=== PATIENT | female | born 1935 | race Caucasian/White ===

== ENCOUNTER → 2016-11-26 | Outpatient (CLI) | payer MEDICARE ==
--- NOTE | 2016-11-27 07:12 | XR ---
EXAMINATION TYPE: XR abdomen 2V DATE OF EXAM: 11/26/2016 4:36 PM CLINICAL HISTORY: Lower abdominal pain and bloating after eating for 2 days. TECHNIQUE: Upright and left side down lateral decubitus views of the abdomen are obtained as requeste d. COMPARISON: None. FINDINGS: Scattered gas is seen in non-distended small bowel loops. Gas and fecal material is seen in non-distended colon. There is no visceromegaly, pneumoperitoneum, or abnormal calcification appr eciated. The lung bases are clear. Underlying levoconvex scoliosis centered in the upper lumbar spin e is present. Scattered pelvic phleboliths are seen. Some vascular calcification mid to lower abdomen is noted. There is axial joint space loss in both hips, left greater than right where it is moderate to advanced in appearance. IMPRESSION: Overall nonobstructive bowel gas pattern.
== END | disposition home or self-care (01) ==
LOC: RADXRMAIN 16:08
PROVIDERS: ATTEND Family Medicine
DX: R10.9 Unspecified abdominal pain (principal)
CPT/HCPCS: 74020

== ENCOUNTER → 2018-01-07 | Outpatient (CLI) | payer MEDICARE ==
--- NOTE | 2018-01-07 09:55 | CT ---
EXAMINATION TYPE: CT brain wo con DATE OF EXAM: 01/07/2018 COMPARISON: NONE INDICATION: mild memory loss per patient DLP: 1121 mGycm, Automated exposure control for dose reduction was used. CONTRAST: None CT of the brain is performed utilizing 3 mm thick sections through the posterior fossa and 3 mm thick sections through the remaining calvarium. Study is performed within 24 hours of arrival to the hosp [facility]. No abnormal hyperdensity is present to suggest an acute intracranial hemorrhage. No mass lesion is evident. No acute infarcts are evident. Ventricles and sulci are appropriate for the patient age. Paranasal sinuses and mastoid air cells within the [id number] are clear. IMPRESSIONS: 1. No acute intracranial process.
== END | disposition home or self-care (01) ==
LOC: RADCTMAIN 09:22
PROVIDERS: ATTEND Internal Medicine
DX: G31.84 Mild cognitive impairment of uncertain or unknown etiology (principal)
CPT/HCPCS: 70450

== ENCOUNTER → 2018-10-26 | Outpatient (CLI) | payer MEDICARE | END | disposition home or self-care (01) | LOC: LABPAT 15:13 | PROVIDERS: ATTEND Orthopaedic Surgery | DX: Z01.812 Encounter for preprocedural laboratory examination (principal) | CPT/HCPCS: 87070 ==

== ENCOUNTER 2018-11-11 05:40 | Inpatient (IN) | payer MEDICARE ==
--- NOTE | 2018-11-10 15:55 | HP ---
HISTORY AND PHYSICAL DATE OF SURGERY: 11/11/2018 Opal Wong is an 83-year-old patient seen with symptomatic left knee osteoarthritis. We discussed treatment options. She elected to proceed with left total knee arthroplasty. Consent was obtained. Medical clearance was provided by Dr. Kang. PAST MEDICAL HISTORY: Hypertension, hypothyroidism. PAST SURGICAL HISTORY: Noncontributory. DAILY MEDICATIONS: 1. Donepezil/hydrochlorothiazide. 2. Levothyroxine. 3. Losartan. ALLERGIES: NONE. SOCIAL HISTORY: She denies current tobacco use. PHYSICAL EVALUATION OF THE LEFT KNEE: Range of motion is negative 3 to 100. Tenderness along the lateral joint line. Crepitus in lateral and patellofemoral compartments. Ligaments stable. Hip rotation without pain. Distal neurovascular exam intact. RADIOGRAPHS: Radiographs of the left knee reveal severe lateral and moderate patellofemoral compartment osteoarthritis. IMPRESSION: 1. Left knee osteoarthritis. 2. Hypertension. 3. Hyperlipidemia. 4. Hypothyroidism. PLAN: Left total knee arthroplasty. MMODL / IJN: [id number] /
[~2018-11-11 05:40] MED LIST: ACETAMINOPHEN TAB 500 MG TAB PO ONE; MELOXICAM 7.5 MG TAB PO ONE; TRANEXAMIC ACID 1,000 MG in SODIUM CHLORIDE 0.9% 100 ML IVPB ONE; ceFAZolin IN SWFI 2 GM/20 ML SYRINGE IVP ONE
[2018-11-11] MEDS ORDERED: ONDANSETRON 4 MG/2 ML VIAL IVP ONE (05:55)
[2018-11-11] MEDS ORDERED: DEXAMETHASONE SOD PHOSPHATE 10 MG/ML 1 ML VIAL IV ONE (05:55)
[2018-11-11] MEDS ORDERED: MIDAZOLAM 2 MG/2 ML VIAL IV PRN (05:55)
[2018-11-11] MEDS ORDERED: HYDROmorphone 0.5 MG/0.5 ML SYRINGE IVP PRN ×3 (05:55→08:46)
[2018-11-11] MEDS: LACTATED RINGERS 1,000 ML IV SCH (06:29)
[2018-11-11] MEDS ORDERED: LIDOCAINE 1% 20 ML VIAL (10MG/ML) FOR IV START INTRADERMA ONE (06:29)
[2018-11-11] MEDS ORDERED: LIDOCAINE 1% INJ 10MG/ML (20 ML MDV) ONE (06:56)
[2018-11-11] MEDS ORDERED: SODIUM CHLORIDE 0.9% 100 ML BAG ONE (06:56)
[2018-11-11] MEDS ORDERED: ePHEDrine SULFATE/0.9% NACL/PF 50 MG/5 ML SYRINGE IV ONE (06:56)
[2018-11-11] MEDS ORDERED: fentaNYL (PF) 50 MCG/ML 2 ML AMP ONE (06:56)
[2018-11-11] MEDS ORDERED: TRANEXAMIC ACID 1,000 MG/10 ML VIAL ONE (06:56)
[2018-11-11] MEDS ORDERED: PROPOFOL 10 MG/ML 20 ML VIAL IV ONE (06:56)
[2018-11-11] MEDS ORDERED: ROPIVACAINE 246.25 MG, EPINEPHrine 0.5 MG, KETOROLAC 30 MG, cloNIDine HCL/PF 80 MCG, WA... MISCELLANE ONE ×5 (07:00)
[2018-11-11] MEDS ORDERED: ROPIVACAINE 1,100 MG, SODIUM CHLORIDE 0.9% 500 ML 330 ML MISCELLANE PRN ×2 (07:09)
--- NOTE | 2018-11-11 07:10 | P.ONQ ---
Anesthesiology Proc Note - PNB - Peripheral Nerve Block Performed Left Adductor Canal Infusion Time Out Performed: Yes Procedure Start Time: 06:34 Procedure Stop Time: 06:46 Indication: Acute Post-Operative Pain Sedation Type: Sedate with meaningful contact maintained Preparation: Sterile Prep Position: Supine Catheter: Indwelling Needle Types: On-Q Needle Size: 100mm (4") Needle Gauge: 21 Technique: Ultrasound Injectate: 0.5% Ropivacaine (see comment for volume) (ropi .5% 20cc) Blood Aspirated: No Pain Paresthesia on Injection Noted: No Resistance on Injection: Normal Events: Uneventful and Well Tolerated
[2018-11-11] MEDS ORDERED: ceFAZolin 3,000 MG in SODIUM CHLORIDE 0.9% IRRIGATIO 3,000 ML IRRIGATION ONE (07:40)
[2018-11-11] MEDS ORDERED: ONDANSETRON 4 MG/2 ML VIAL IVP PRN (08:46)
[2018-11-11] MEDS ORDERED: NALOXONE 0.4 MG/ML 1 ML VIAL IV PRN (08:46)
--- NOTE | 2018-11-11 08:46 | P.OP ---
Date of Procedure: 11/11/18 Preoperative Diagnosis: Left knee osteoarthritis Postoperative Diagnosis: Left knee osteoarthritis Procedure(s) Performed: Left total knee arthroplasty Implants: 1. Microport evolution size 4 left CS/CR cemented femur 2. Microport evolution size 5 left cemented tibial baseplate 3. Microport evolution size 5 left 12 mm MP/CS polyethylene tibial insert 4. Microport advance 35 mm all polyethylene cemented patella Anesthesia: regional (Adductor canal catheter), local, spinal Surgeon: Meño Chahal Operations Accountant #1: Walker Dennis Estimated Blood Loss (ml): 150 Pathology: other (Bone) Condition: stable Disposition: PACU Indications for Procedure: 83-year-old patient seen with symptomatic left knee osteoarthritis. After treatment options were discussed, she elected to proceed with total knee arthroplasty Operative Findings: See description of procedure Description of Procedure: Patient was taken to the operative suite after having an adductor canal catheter placed by the department of anesthesia. Patient underwent a spinal anesthetic by the department of anesthesia. Patient was given preoperative IV intake antibiotics and TXA. A well-padded tourniquet was placed about the left lower extremity. The lower extremity was then prepped and draped in the normal sterile orthopedic fashion. The extremity was elevated, a tourniquet was insufflated to 300. A standard anterior incision was made sharply through skin. Dissection was taken down through the subcutaneous soft tissues down to the extensor mechanism. A medial arthrotomy was performed, patella was everted and knee was flexed. There was advanced osteoarthritis noted. I introduced my distal intramedullary femoral drill. I then introduced the distal femoral cutting jig. Sanket BARRAGAN secured the cutting jig with 2 pins. I held retractors in position while Sanket BARRAGAN performed the distal femoral resection through the guide area we now removed her distal femoral cutting guide. We now placed our 4-in-1 femoral cutting block and positioned and it was secured with 2 pins by Sanket BARRAGAN while I held the block in position. The distal femoral finishing was now completed. A proximal tibial cutting guide was positioned. I held the guide in the appropriate position with both hands well Sanket BARRAGAN inserted stabilizing pins into the guide. Proximal tibial cut was made. We now placed a trial femoral component into position, along with an appropriate size tibial tray and insert. We now took the knee through range of motion and had full extension good flexion and good overall soft tissue balance noted. The patella was everted and stabilized with 2 towel clips held by Sanket BARRAGAN while I performed a flush with patellar quad tendon utilizing a fresh sawblade. We templated the patella, appropriate drill holes were made. An appropriate trial patella was positioned, knee was taken through full range of motion with the patella tracking very nicely. The trial patella was removed. Drill holes were made through the femoral component. All trial components were removed after marking off the appropriate rotation of the tibia. Retractors were now positioned along the proximal tibia. An appropriate keel punch was made with the appropriate size tibial guide by myself on Sanket BARRAGAN assisted by holding retractors. At this point appropriate size implants were chosen and opened. The joint was irrigated copiously with pulse lavage mechanical irrigation. The posterior capsule was infiltrated with local analgesic. The wound was irrigated with pulse lavage mechanical irrigation. We mixed antibiotic methylmethacrylate. We placed the knee into flexion. We placed multiple retractors assisted by Sanket BARRAGAN to expose the proximal tibia. Once the methyl methacrylate was ready, the tibial component was cemented into place removing any excess methylmethacrylate form by both myself and Sanket BARRAGAN. The femoral component was cemented into place removing the removing any excess methylmethacrylate performed by both myself and Sanket BARRAGAN. We then inserted the appropriate size polyethylene tibial insert. We made sure that it was locked into position. We took the knee into full extension, and then back in a flexion making sure we had removed any excess methylmethacrylate. The patellar component was then cemented down and secured with clamp. Excess methylmethacrylate removed. We kept the knee in full extension, patellar clamp in position until methylmethacrylate had hardened. Once it had hardened the patellar clamp was removed. The knee was taken through full range of motion. The patella tracked nicely. There was good soft tissue balancing. The tourniquet was now released. Additional hemostasis was achieved via electrocautery. A second gram of TXA was given. The wound again was irrigated with pulse lavage mechanical irrigation. The superficial soft tissues were infiltrated local analgesic. The extensor mechanism was repaired with Vicryl. We checked the repair with range of motion and it was stable. The subcutaneous soft tissues were repaired with Vicryl in layers. The skin was approximated with pernio/Dermabond. Sterile dressings were applied followed by loose web roll and Don bandage. The patient was transferred to a bed, and taken to recovery in stable and satisfactory condition. Sanket BARRAGAN assisted with this complex procedure.
[2018-11-11] MEDS ORDERED: LACTATED RINGERS 1,000 ML IV ONE (08:56)
[2018-11-11] MEDS: SODIUM CHLORIDE 0.9% 1,000 ML IV SCH (09:52)
--- NOTE | 2018-11-11 10:09 | XR ---
EXAMINATION TYPE: XR knee limited LT DATE OF EXAM: 11/11/2018 COMPARISON: NONE HISTORY: 83-year-old female evaluation for postoperative abnormality and alignment TECHNIQUE: 2 views FINDINGS: Images show placement of left total knee arthroplasty. Both distal femoral and proximal tibial compon ents of the prosthesis appear well seated without periprosthetic fracture. Alignment grossly anatomic . Anterior soft tissue swelling with soft tissue air as well as intra-articular air compatible with r ecent operation. IMPRESSION: Uncomplicated postoperative appearance left total knee arthroplasty.
[2018-11-11] MEDS: HYDROcodone/APAP 5-325MG 1 EACH TAB PO PRN ×3 (10:46→21:40)
[2018-11-11 10:55] VITALS: BMI 22.8
[2018-11-11] MEDS: ceFAZolin IN SWFI 2 GM/20 ML SYRINGE IVP SCH ×2 (16:14→23:01)
[2018-11-11] MEDS: SENNOSIDES-DOCUSATE SODIUM 1 EACH TAB PO SCH (20:58)
[2018-11-11] MEDS: DONEPEZIL 5 MG TAB PO SCH (20:58)
[2018-11-11] MEDS: ENOXAPARIN 30 MG/0.3 ML SYRINGE SQ SCH (20:58)
[2018-11-11] MEDS: LEVOTHYROXINE 50 MCG TAB PO SCH (20:58)
[2018-11-12] MEDS: HYDROcodone/APAP 5-325MG 1 EACH TAB PO PRN ×2 (03:03→08:03)
[2018-11-12] MEDS: LEVOTHYROXINE 25 MCG TAB PO SCH (05:19)
--- NOTE | 2018-11-12 07:33 | CONS ---
CONSULTATION Consultation regarding medical management post left total knee arthroplasty. HISTORY OF PRESENT ILLNESS: This is an 83-year-old female that was admitted to the hospital and undergone left total knee arthroplasty. She was seen postoperatively, doing well. She denies much pain. In fact, the aides have some difficulty trying to keep the patient bed bound. She is getting up frequently and walking around with a walker. She denies any pain. She does have underlying history of mild dementia. PAST MEDICAL HISTORY: Significant for history of hypertension, hypothyroidism and mild dementia. Details as per preop consult. PAST SURGICAL HISTORY: Tonsils, appendix, hysterectomy, , bilateral partial thyroid. FAMILY MEDICAL HISTORY: Has a sister living in adequate health. Parents , father had ASHD. One brother history of peripheral arterial disease and coronary artery disease. One brother living history of CA of the breast. Children all in good health. REVIEW OF SYSTEMS: NEURO: Denies any headaches, dizziness. No double vision, blurred vision. No symptoms of TIA, syncope, seizures. PSYCH: No anxiety or depression, the patient is excited and pleasant. CARDIAC: Denies chest pain, angina, palpitation. RESPIRATORY: No shortness of breath, cough, hemoptysis. GI: No nausea, vomiting, abdominal pain. : No symptoms of dysuria, hematuria. EXTREMITIES: No pain. CONSTITUTIONAL: No fever or chills. MEDICATIONS: Medications at home are: Requip 0.25 mg at bedtime, Aleve, multivitamin, losartan hydrochlorothiazide 50/12.5 one daily, Synthroid 25 mcg Thursday, Thursday, Thursday and 50 other 4 days. She takes ginkgo biloba, Lexapro 10 mg daily, Aricept 5 mg daily, vitamin D daily, and aspirin 81 mg daily. SOCIAL HISTORY: Patient , lives with spouse. 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 PHYSICAL EXAMINATION: Pleasant female at present in no distress. VITAL SIGNS: Temperature 97.5, pulse 60, respirations 16, blood pressure 98/60, pulse ox 99% on room air. HEENT: Normocephalic. NECK: No JVD. CHEST: Clear to auscultation and percussion. CARDIAC: Normal S1, S2 with no gallops or murmurs. ABDOMEN: Soft. Bowel sounds present. Extremities reveal no edema. Good pulses both upper extremities and pedal pulses. The patient's left leg has an Don wrap. NEUROLOGICALLY: Awake, alert, oriented to place and person. Moves both upper extremities well. LABORATORY ASSESSMENT: None new. ASSESSMENT: 1. Status post left total knee arthroplasty. 2. Hypertension on medical therapy. 3. Restless legs syndrome. 4. Mild dementia. 5. Hypothyroidism on replacement therapy. PLAN: Continue present medical regimen. Patient's condition discussed with the patient. Prognosis guarded. MMODL / IJN: [id number] /
[2018-11-12] MEDS: SODIUM CHLORIDE 0.9% 1,000 ML IV SCH (07:50)
[2018-11-12] MEDS: LACTATED RINGERS 1,000 ML IV SCH (07:50)
[2018-11-12] MEDS: ENOXAPARIN 30 MG/0.3 ML SYRINGE SQ SCH ×2 (08:02→20:35)
[2018-11-12] MEDS: MELOXICAM 7.5 MG TAB PO SCH (08:02)
[2018-11-12] MEDS: LOSARTAN-HCTZ 50-12.5 MG 1 EACH TAB PO SCH (08:02)
[2018-11-12 09:19] LABS: Basophils % (A) 0 %; Eosinophils # (A) 0.2 k/uL (0-0.7); Eosinophils % (A) 2 %; HCT 34.4 % (34.0-46.0); HGB 11.2 gm/dL (11.4-16.0); Lymphocytes # (A) 1.4 k/uL (1.0-4.8); Lymphocytes % (A) 20 %; MCH 32.7 pg (25.0-35.0); MCHC 32.6 g/dL (31.0-37.0); MCV 100.6 fL (80.0-100.0); Mean Platelet Volume 7.1; Monocytes # (A) 0.4 k/uL (0-1.0); Monocytes % (A) 5 %; Neutrophils # (A) 5.1 k/uL (1.3-7.7); Neutrophils % (A) 71 %; Platelet Count 183 k/uL (150-450); RBC 3.43 m/uL (3.80-5.40); RDW 12.9 % (11.5-15.5); WBC 7.2 k/uL (3.8-10.6)
--- NOTE | 2018-11-12 11:48 | P.PN ---
Subjective Progress Note Date: 11/12/18 Principal diagnosis: Status post left total arthroplasty Patient evaluated at bedside, she is resting comfortably. Slight increase in pain involving the knee. She is ambulating with therapy. Denies chest pain or shortness of breath. Objective - Vital Signs Vital signs: Vital Signs Temp 98.8 F 11/12/18 07:53 Pulse 62 11/12/18 07:53 Resp 18 11/12/18 07:53 BP 105/70 11/12/18 07:53 Pulse Ox 96 11/12/18 07:53 Intake & Output 11/11/18 11/12/18 11/12/18 18:59 06:59 18:59 Intake Total 901 100 Output Total 150 Balance 751 100 Intake: IV 901 Intake, IV Titration 100 Amount Sodium Chloride 0.9% 1, 100 000 ml @ 50 mls/hr IV . Q20H [facility] Rx#:[id number] Output: Estimated Blood Loss 150 Other: Voiding Method Bedside Commode # Voids 1 1 - Exam Left lower extremity: Incision is clean, dry, and intact. The exofin fusion tape is in good condition. There is minimal soft tissue swelling and ecchymosis surrounding the medial and lateral aspects of the incision. Calf is soft, no tenderness with palpation. Plantar flexion, dorsiflexion, EHL, FHL are intact. Sensory exam to light touch throughout the extremity is intact, dorsal pedis pulses 2+. - Labs CBC & Chem 7: 11/12/18 08:30 Labs: Abnormal Lab Results - Last 24 Hours (Table) 11/12/18 Range/Units 08:30 RBC 3.43 L (3.80-5.40) m/uL Hgb 11.2 L (11.4-16.0) gm/dL MCV 100.6 H (80.0-100.0) fL Assessment and Plan Plan: Assessment: Postop day #1 status post left total knee arthroplasty Plan: Pain control, continue oral medication. Discussed with nursing they may increase [place] dose if needed GI and DVT prophylaxis, continue current medication Wound care instructions discussed Ice and elevate often Encourage incentive spirometer Continue work with physical therapy and use of CPM Medical recommendations Discharge planning: Hopeful discharge to home tomorrow Time with Patient: Less than 30
[2018-11-12] MEDS: HYDROcodone/APAP 7.5-325MG 1 EACH TAB PO PRN ×2 (13:18→22:28)
[2018-11-12] MEDS: MULTIVITAMINS, THERA 1 EACH TAB PO SCH (13:31)
[2018-11-12] MEDS: HYDROmorphone 0.5 MG/0.5 ML SYRINGE IVP PRN ×2 (17:17→20:32)
[2018-11-12] MEDS: DONEPEZIL 5 MG TAB PO SCH (20:34)
[2018-11-12] MEDS: SENNOSIDES-DOCUSATE SODIUM 1 EACH TAB PO SCH (20:34)
[2018-11-13] MEDS: SODIUM CHLORIDE 0.9% 1,000 ML IV SCH ×3 (04:16→21:55)
[2018-11-13] MEDS: HYDROmorphone 0.5 MG/0.5 ML SYRINGE IVP PRN (05:23)
[2018-11-13] MEDS: LEVOTHYROXINE 50 MCG TAB PO SCH (05:28)
--- NOTE | 2018-11-13 06:38 | PN ---
PROGRESS NOTE ATTENDING PHYSICIAN: Dr. Lindsey Kang. CHIEF COMPLAINT: Re-evaluation. HISTORY OF PRESENT ILLNESS: This is an 83-year-old female was admitted to the hospital and undergone left total knee arthroplasty. She is actually doing fairly well. Denies much pain. She has been up. REVIEW OF SYSTEMS: Neuro: Denies any headaches, dizziness. Psych: No anxiety. CARDIOVASCULAR: No chest pain, angina or palpitation. Respiratory: Denies shortness of breath, cough. GI no nausea, vomiting, abdominal pain, diarrhea. no symptoms of dysuria, hematuria. Extremities: No pain. Constitutional: No fever, chills. PHYSICAL EXAMINATION: Pleasant female at present in no distress. Vital signs reveals: Temperature 98.8, pulse 62, respirations 18, blood pressure 105/70, pulse ox 96% on room air. HEENT: Normocephalic. Neck no JVD. CHEST: Clear to auscultation and percussion. Cardiac: Normal S1, S2 with no gallops. Systolic murmur 2/6 left sternal border. ABDOMEN: Soft. Bowel sounds present. Extremities reveal no edema. Neurologically awake, alert, oriented with well-coordinated movements both upper extremities and lower extremities the patient's left leg is post surgery with decreased range of motion. LABORATORY ASSESSMENT: CBC which reveals a hemoglobin of 11.2. ASSESSMENT: 1. Anemia acute blood loss as expected post surgery. 2. Hypertension, controlled. 3. Degenerative arthritis, status post left total knee arthroplasty. 4. Mild dementia. PLAN: Continue present medical regimen. Patient's condition discussed with the patient. Prognosis guarded. MMODL / IJN: [id number] /
[2018-11-13] MEDS: ENOXAPARIN 30 MG/0.3 ML SYRINGE SQ SCH ×2 (08:04→19:52)
[2018-11-13] MEDS: LOSARTAN-HCTZ 50-12.5 MG 1 EACH TAB PO SCH (08:05)
[2018-11-13] MEDS: HYDROcodone/APAP 7.5-325MG 1 EACH TAB PO PRN (08:05)
[2018-11-13] MEDS: MELOXICAM 7.5 MG TAB PO SCH (08:05)
[2018-11-13] MEDS: LACTATED RINGERS 1,000 ML IV SCH (09:38)
[2018-11-13] MEDS ORDERED: ACETAMINOPHEN TAB 500 MG TAB PO PRN (11:27)
--- NOTE | 2018-11-13 11:51 | P.PN ---
Progress Note - Text Progress Note Date: 11/13/18 Patient seen lying in bed. is at bedside. She states some pain control issues and nausea. Her incision is well approximated with no drainage. She is able to move her knee with limited range of motion but she doesn't appear to have significant pain. Homans and Rom or both negative. Distal neurovascular exam is intact. Impression: Status post left total knee arthroplasty Plan: Physical therapy for walker ambulation and gait training Medical management DVT prophylaxis Probable rehab transfer on Thursday
[2018-11-13] MEDS: KETOROLAC 30 MG/ML 1 ML VIAL IVP SCH ×3 (12:08→23:53)
[2018-11-13] MEDS: MULTIVITAMINS, THERA 1 EACH TAB PO SCH (12:09)
[2018-11-13] MEDS: ACETAMINOPHEN TAB 500 MG TAB PO SCH ×3 (12:09→23:54)
--- NOTE | 2018-11-13 12:39 | P.PN ---
Subjective Progress Note Date: 11/13/18 Principal diagnosis: Status post left total knee arthroplasty This 83-year-old female who underwent a left total knee arthroplasty. She was doing very well for the first 48 hours. Now she's had some increased confusion increased pain in the left knee and has difficulty tolerating any pain medication. The patient has significant nausea vomiting with that. And she appears more dopey. Patient has underlying history of dementia and basically mental status is at about the same and she is more sleepy. We will discontinue all narcotics use Toradol will discontinue meloxicam Ultram only if she is not controlled with pain. Along with the Toradol was used the Tylenol around-the- clock. Recheck renal function tomorrow. Patient condition discussed also with Dr. Carrillo and patient's spouse. Patient will not be discharged today. Rehab consult placement may be possible if does not improve by Thursday. She's not been eatiing REVIEW OF SYSTEMS: Neuro: Denies any headaches dizziness. Psych: Denies any anxiety patient has mild cognitive impairment Cardiac: Denies chest pain and angina palpitations. Respiratory: Denies shortness of breath cough. GI: Some nausea vomiting but no abdominal pain no diarrhea no bowel movement : Denies dysuria hematuria. Extremities: Pain left knee Skin: Intact. Constitutional: No fever, chills. Objective - Vital Signs Vital signs: Vital Signs Temp 97.7 F 11/13/18 11:00 Pulse 68 11/13/18 11:00 Resp 16 11/13/18 11:00 BP 147/77 11/13/18 11:00 Pulse Ox 96 11/13/18 11:00 Intake & Output 11/12/18 11/13/18 11/13/18 18:59 06:59 18:59 Intake Total 200 Balance 200 Intake: Other 200 Other: Voiding Method Bedside Commode Bedside Commode # Voids 3 0 PHYSICAL EXAMINATION: Cooperative, at present in no acute distress. HEENT: Neck supple. No JVD. Chest: Clear to auscultation percussion. Cardiac: Normal S1-S2 no gallops no murmur . Abdomen: Soft bowel sounds present. Extremities: No edema no tenderness Neurologically: Patient's awake, mild chronic confusion but still very functional and suppressions appropriately. Most both upper extremities and well coordinated fashion. Decreased performance of the left lower extremity at the site of surgery and left knee - Labs CBC & Chem 7: 11/12/18 08:30 Assessment and Plan Assessment: ASSESSMENT: 1. Nausea vomiting secondary to narcotics. 2. Increased pain left knee post surgery. 3. Status post left knee arthroplasty. 4. Mild dementia. 5. Hypertension essential controlled. 6. Mild anemia post surgery secondary to blood loss as expected. PLAN: Continue present medical regimen. We'll discontinue all narcotics use Ultram only if pain is not controlled but meanwhile try to control pain with Toradol and Tylenol [id number]. Patient begins ensure his supplement for meals senna for bowel movement. Patient's status discussed with Dr. MARIEE at present no suggestion of any infective process of the knee.
[2018-11-13 12:54] LABS: Anion Gap 7 mmol/L; Blood Urea Nitrogen 12 mg/dL (7-17); Calcium 9.9 mg/dL (8.4-10.2); Carbon Dioxide 27 mmol/L (22-30); Chloride 94 mmol/L (98-107); Glucose 100 mg/dL (74-99); Potassium 3.8 mmol/L (3.5-5.1); Sodium 128 mmol/L (137-145)
[2018-11-13] MEDS: SENNOSIDES-DOCUSATE SODIUM 1 EACH TAB PO SCH (19:52)
[2018-11-13] MEDS: traMADol 50 MG TAB PO PRN (19:53)
[2018-11-13] MEDS: DONEPEZIL 5 MG TAB PO SCH (19:53)
[2018-11-14] MEDS: LACTATED RINGERS 1,000 ML IV SCH (05:27)
[2018-11-14] MEDS: ACETAMINOPHEN TAB 500 MG TAB PO SCH ×3 (06:49→17:20)
[2018-11-14] MEDS: KETOROLAC 30 MG/ML 1 ML VIAL IVP SCH ×3 (06:49→17:21)
[2018-11-14] MEDS: LEVOTHYROXINE 50 MCG TAB PO SCH (06:50)
[2018-11-14] MEDS: LOSARTAN-HCTZ 50-12.5 MG 1 EACH TAB PO SCH (06:50)
[2018-11-14] MEDS: SODIUM CHLORIDE 0.9% 1,000 ML IV SCH (06:51)
[2018-11-14] MEDS: ENOXAPARIN 30 MG/0.3 ML SYRINGE SQ SCH ×2 (06:51→20:21)
[2018-11-14 06:59] LABS: Basophils % (A) 0 %; Eosinophils # (A) 0.2 k/uL (0-0.7); Eosinophils % (A) 3 %; HCT 33.7 % (34.0-46.0); Lymphocytes # (A) 1.2 k/uL (1.0-4.8); Lymphocytes % (A) 20 %; MCH 32.4 pg (25.0-35.0); MCHC 32.8 g/dL (31.0-37.0); MCV 98.9 fL (80.0-100.0); Monocytes # (A) 0.5 k/uL (0-1.0); Monocytes % (A) 8 %; Neutrophils # (A) 3.9 k/uL (1.3-7.7); Neutrophils % (A) 66 %; Platelet Count 193 k/uL (150-450); RBC 3.41 m/uL (3.80-5.40); RDW 12.9 % (11.5-15.5); WBC 5.9 k/uL (3.8-10.6)
[2018-11-14 07:14] LABS: Albumin 2.8 g/dL (3.5-5.0); Potassium 4.1 mmol/L (3.5-5.1); Total Bilirubin 0.5 mg/dL (0.2-1.3); Total Protein 5.1 g/dL (6.3-8.2)
[2018-11-14] MEDS: traMADol 50 MG TAB PO PRN ×2 (10:10→22:39)
--- NOTE | 2018-11-14 10:15 | P.PN ---
Subjective Progress Note Date: 11/14/18 Principal diagnosis: Status post left total knee arthroplasty This 83-year-old female was admitted to the hospital and undergone left total knee arthroplasty. For the first 48 hours she was doing very well however subsequently she has pain in the left knee which has become intolerant to her. Medications cause nausea vomiting. She was switched over to Tylenol around-the- clock as well as peripheral IV. Patient is much better today show pain is improved she is walking up and down the corridor. She still not eating much. He only at 25%. She does not feel she can take care of herself at home and her spouse cannot help her. We'll await for transfer to nursing facility for rehab. Patient's sodium was down to 128 yesterday has improved to 136. She is starting to eat better. Patient denies any other associated symptoms. She does have mild dementia. Has hypertension adequately controlled. She did have a bowel movement yesterday. No bleeding patient an anticoagulated patient. I personally walked the patient in the room. She used a walker and only bearing weight on the toes of the left foot. She did well walking. It did cause a significant pain. Patient hemoglobin is stable REVIEW OF SYSTEMS: Neuro: Denies any headaches dizziness. Psych: Denies anxiety depression feels oriented. Cardiac: Denies chest pain and angina palpitations. Respiratory: Denies shortness of breath cough. GI: Denies nausea vomiting or abdominal pain. No diarrhea or constipation, no bowel movement yet. : Denies dysuria hematuria. Extremities: Pain left knee Skin: Intact. Constitutional: No fever, chills. Objective - Vital Signs Vital signs: Vital Signs Temp 97.9 F 11/14/18 06:46 Pulse 70 11/14/18 06:46 Resp 17 11/14/18 07:00 BP 114/49 11/14/18 06:46 Pulse Ox 96 11/14/18 06:46 Intake & Output 11/13/18 11/14/18 11/14/18 18:59 06:59 18:59 Intake Total 875 Balance 875 Intake: Intake, IV Titration 875 Amount Sodium Chloride 0.9% 1, 875 000 ml @ 70 mls/hr IV . [id number] [facility] Rx#:[id number] Other: Voiding Method Bedside Commode Toilet Toilet # Voids 4 2 # Bowel Movements 1 PHYSICAL EXAMINATION: Cooperative, at present in no acute distress. HEENT: Neck supple. No JVD. Chest: Clear to auscultation percussion. Cardiac: Normal S1-S2 no gallops no murmur . Abdomen: Soft bowel sounds present. Extremities: Trace edema left leg pain with fullness in the left knee Neurologically: Patient is awake alert oriented place and person does have history of mild dementia - Labs CBC & Chem 7: 11/14/18 06:30 11/14/18 06:30 Labs: Abnormal Lab Results - Last 24 Hours (Table) 11/13/18 11/14/18 11/14/18 Range/Units 12:18 06:30 06:30 RBC 3.41 L (3.80-5.40) m/uL Hgb 11.0 L (11.4-16.0) gm/dL Hct 33.7 L (34.0-46.0) % Sodium 128 L 136 L (137-145) mmol/L Chloride 94 L (98-107) mmol/L Glucose 100 H (74-99) mg/dL AST 51 H (14-36) U/L Total Protein 5.1 L (6.3-8.2) g/dL Albumin 2.8 L (3.5-5.0) g/dL Assessment and Plan Assessment: ASSESSMENT: 1. Nausea vomiting secondary to narcotics resolved. 2. Increased pain left knee post surgery better controlled. 3. Status post left knee arthroplasty. 4. Mild dementia. 5. Hypertension essential controlled. 6. Mild anemia post surgery secondary to blood loss as expected. 7. Hyponatremia improved PLAN: Continue present medical regimen. Continue present medical regimen. IV fluids be discontinued. Plan for potential transfer to rehab tomorrow and encouraged increased oral supplements retaken in the form of ensure previous tests discussed with the spouse
--- NOTE | 2018-11-14 11:59 | P.PN ---
Progress Note - Text Progress Note Date: 11/14/18 Patient seen lying in bed, is at bedside. Her nausea has improved. Her pain is more tolerable today. She still having a difficult time with ambulation and requests rehab transferhe does have history of early onset dementia. Incision stable. Homans Rom negative. Distal neurovascular exam intact. Impression: Status post left total knee arthroplasty Plan: Medical management DVT prophylaxis Physical therapy Anticipate transfer to rehab tomorrow
[2018-11-14] MEDS: MULTIVITAMINS, THERA 1 EACH TAB PO SCH (12:13)
[2018-11-14] MEDS: SENNOSIDES-DOCUSATE SODIUM 1 EACH TAB PO SCH (20:21)
[2018-11-14] MEDS: DONEPEZIL 5 MG TAB PO SCH (20:22)
[2018-11-15] MEDS: ACETAMINOPHEN TAB 500 MG TAB PO SCH ×3 (03:17→11:11)
[2018-11-15] MEDS: KETOROLAC 30 MG/ML 1 ML VIAL IVP SCH ×3 (03:17→11:11)
[2018-11-15 07:03] VITALS: BP 142/71; PULSE 62; RESP 17; TEMP 97.9
[2018-11-15] MEDS: ENOXAPARIN 30 MG/0.3 ML SYRINGE SQ SCH (07:04)
[2018-11-15] MEDS: LEVOTHYROXINE 25 MCG TAB PO SCH (07:04)
[2018-11-15] MEDS: LOSARTAN-HCTZ 50-12.5 MG 1 EACH TAB PO SCH (07:04)
[2018-11-15] MEDS: LACTATED RINGERS 1,000 ML IV SCH (07:05)
[2018-11-15] MEDS: MULTIVITAMINS, THERA 1 EACH TAB PO SCH (11:14)
--- NOTE | 2018-11-15 13:02 | P.PN ---
Subjective Progress Note Date: 11/15/18 Principal diagnosis: Status post left total arthroplasty Patient evaluated at bedside, she is resting comfortably. Slight increase in pain involving the knee. She is ambulating with therapy. Denies chest pain or shortness of breath. Objective - Vital Signs Vital signs: Vital Signs Temp 97.9 F 11/15/18 07:00 Pulse 62 11/15/18 07:00 Resp 17 11/15/18 07:00 BP 142/71 11/15/18 07:00 Pulse Ox 97 11/15/18 07:00 Intake & Output 11/14/18 11/15/18 11/15/18 18:59 06:59 18:59 Other: Voiding Method Toilet Toilet # Voids 1 # Bowel Movements 1 - Exam Left lower extremity: Incision is clean, dry, and intact. The exofin fusion tape is in good condition. There is minimal soft tissue swelling and ecchymosis surrounding the medial and lateral aspects of the incision. Calf is soft, no tenderness with palpation. Plantar flexion, dorsiflexion, EHL, FHL are intact. Sensory exam to light touch throughout the extremity is intact, dorsal pedis pulses 2+. - Labs CBC & Chem 7: 11/14/18 06:30 11/14/18 06:30 Assessment and Plan Plan: Assessment: Postop day #4 status post left total knee arthroplasty Plan: Pain control, continue oral medication. Discussed with nursing they may increase [place] dose if needed GI and DVT prophylaxis, continue current medication Wound care instructions discussed Ice and elevate often Encourage incentive spirometer Continue work with physical therapy and use of CPM Medical recommendations Discharge planning: Discharge to rehab today Time with Patient: Less than 30
--- NOTE | 2018-11-15 13:04 | P.DS ---
Providers Date of admission: 11/11/18 05:40 Expected date of discharge: 11/15/18 Attending physician: Meño Chahal Consults: 11/11/18 08:46 Consult Physician Routine Consulting Provider: Addy Kang Reason/Comments: Medical management Do you want consulting provider notified?: Yes Primary care physician: Addy Kang Hospital Course: Date of admission: 11/11/2018 Date of discharge: 11/15/2018 Admission diagnosis: Status post left total knee arthroplasty Discharge diagnosis: Same Attending physician: Dr. Chahal Surgical procedures: Left total knee arthroplasty Brief history: Patient is a 83-year-old female with a history of progressive primary left knee osteoarthritis. At this point patient has failed conservative treatment measures and has opted to proceed with a elective left total knee arthroplasty. Hospital course: Details of patient's surgery can be found in operative report. Patient tolerated the procedure well and was subsequently transported to orthopedic floor. Patient's orthopeidc and medical care was provided daily. Patient had daily laboratory tests performed for evaluation of overall blood counts. Patient had daily physical therapy to include strengthening range of motion as well as education with walker ambulation. Patient had daily CPM usage as part of their physical therapy program. Patient was treated with Lovenox for their postoperative DVT prophylaxis during their inpatient stay. Patient was noted to have a relatively uneventful postoperative course. Patient reported satisfactory pain control with oral pain medications by postoperative day 0. Patient showed satisfactory progress with physical therapy. Patient moved steadily through the program and had no difficulty meeting the goals by postoperative day 4. Given patient's otherwise satisfactory course and having met physical therapy goals, plan is to discharge patient rehab on postoperative day 4. Discharge condition/disposition: Patient will be discharged home in stable condition. Discharge medications: Instructions are given on resumption of patient's normal daily medications per primary care recommendation, in addition patient will be prescribed . Discharge instructions: 1. Wound care and infection precautions, keep incision dry and covered while showering, no lotions, creams, moisturizers. No soaking, tubs, pools, hottubs. Do not scrub over the incision. 2. Weight-bear as tolerated with walker / cane until follow-up. 3. Ice and elevate when necessary. Do not exceed 20 minutes per hour with ice pack. 4. Utilize compression sleeve until seen at first follow up appointment. 5. Visiting nursing care. 6. Home physical therapy including home CPM. 7. Pain meds and anticoagulants per prescription. 8. Pain medication has potential to cause constipation. Increase oral fluid and fiber intake. Contact primary care provider if you have not had a bowel movement within 48 hours after discharge 9. No anti-inflammatory medication until discussed at first post operative visit, this including Motrin, Aleve, Mobic, Diclofenac. 10. Follow up in office at 2 weeks postop with Sanket Dennis PA-C 11. Follow up with your primary care doctor 7-10 days after discharge. 12. Contact [facility] with any questions, . Procedures: Left total knee arthroplasty Patient Condition at Discharge: Good Plan - Discharge Summary Discharge Rx Participant: Yes New Discharge Prescriptions: New Aspirin [Adult Low Dose Aspirin EC] 81 mg PO BID #60 tablet. Docusate [Colace] 100 mg PO DAILY #30 capsule Acetaminophen Tab [Tylenol Tab] 650 mg PO Q6H PRN #60 tablet PRN Reason: Pain No Action Levothyroxine Sodium [Synthroid] 25 mcg PO MOWEFR Levothyroxine Sodium [Synthroid] 50 mcg PO SUTUTHSA Donepezil HCl [Aricept ODT] 5 mg PO HS Losartan-Hctz 50-12.5 mg [Hyzaar 50-12.5] 1 tab PO DAILY rOPINIRole HCL [Requip] 0.25 mg PO HS Escitalopram [Lexapro] 10 mg PO HS Cholecalciferol (Vitamin D3) [Vitamin D3] 2,000 unit PO DAILY Ginkgo Biloba [place] Extract [Ginkgo Biloba] 60 mg PO DAILY Multivitamins, Thera [Multivitamin (formulary)] 1 tab PO DAILY Discharge Medication List Cholecalciferol (Vitamin D3) [Vitamin D3] 2,000 unit PO DAILY 11/08/18 [History] Donepezil HCl [Aricept ODT] 5 mg PO HS 11/08/18 [History] Escitalopram [Lexapro] 10 mg PO HS 11/08/18 [History] Ginkgo Biloba Bullard Extract [Ginkgo Biloba] 60 mg PO DAILY 11/08/18 [History] Levothyroxine Sodium [Synthroid] 25 mcg PO MOWEFR 11/08/18 [History] Levothyroxine Sodium [Synthroid] 50 mcg PO SUTUTHSA 11/08/18 [History] Losartan-Hctz 50-12.5 mg [Hyzaar 50-12.5] 1 tab PO DAILY 11/08/18 [History] Multivitamins, Thera [Multivitamin (formulary)] 1 tab PO DAILY 11/08/18 [History ] rOPINIRole HCL [Requip] 0.25 mg PO HS 11/08/18 [History] Aspirin [Adult Low Dose Aspirin EC] 81 mg PO BID #60 tablet. 11/12/18 [Rx] Docusate [Colace] 100 mg PO DAILY #30 capsule 11/12/18 [Rx] Acetaminophen Tab [Tylenol Tab] 650 mg PO Q6H PRN #60 tablet 11/15/18 [Rx] Follow up Appointment(s)/Referral(s): [facility], [NON-STAFF] - As Needed Walker Dennis, MAXX [PHYSICIAN CASHIER COURTESY BOOTH] - 2 Weeks Activity/Diet/Wound Care/Special Instructions: Orthopedic Discharge Instructions: 1. Wound care and infection precautions, keep incision dry and covered while showering, no lotions, creams, moisturizers. No soaking, pools, hot tubs. Do not scrub over incision. 2. Weight-bear as tolerated with walker / cane until follow-up. 3. Ice and elevate when necessary. Do not exceed 20 minutes per hour with ice pack. 4. Utilize compression sleeve until seen at first follow up appointment. 5. Pain meds and anticoagulants per prescription. 6. Pain medication has potential to cause constipation. Increase oral fluid and fiber intake. Contact primary care provider if you have not had a bowel movement within 48 hours after discharge. 7. No anti-inflammatory medication until discussed at first post operative visit, this including Motrin, Aleve, Mobic, Diclofenac. 8. Follow up in office at 2 weeks postop with Sanket Dennis PA-C 9. Follow up with your primary care doctor 7-10 days after discharge. 10. Contact [facility] with any questions, . Discharge Disposition: TRANSFER TO SNF/ECF
--- NOTE | 2018-11-15 23:22 | PN ---
PROGRESS NOTE ATTENDING PHYSICIAN: Dr. Chahal. CONSULTING PHYSICIAN: Dr. Jhony Kang. CHIEF COMPLAINT: Re-evaluation. HISTORY OF PRESENT ILLNESS: This is an 83-year-old female status post left total knee arthroplasty. She does complain of pain in the knee joint. However, the patient says pain is better controlled. She did get an Ultram last night and then she got nauseous. Recommend the patient not have any narcotics including Ultram. The patient will be continued on Motrin 3 times a day along with Tylenol 3 times a day. The patient otherwise feels better. REVIEW OF SYSTEMS: Neuro: Denies any headaches, dizziness. Psych: No anxiety. She does have mild dementia. Cardiac: Denies chest pain, angina, palpitation. Respiratory: Denies shortness of breath, cough, hemoptysis. GI with an episode of nausea last night. No vomiting. No abdominal pain. No diarrhea. no symptoms of dysuria or hematuria. Extremities: No pain except for the left knee. Constitutional: No and fever chills. PHYSICAL EXAMINATION: Pleasant female in no distress. Vital signs reveals temperature 97.9, pulse 66, respirations 17, blood pressure 142/71, pulse ox 97% on room air. HEENT: Normocephalic neck no JVD. CHEST: Clear to auscultation percussion. Cardiac: Normal S1, S2 with no gallops. Systolic murmur 2/6 left sternal border. ABDOMEN: Soft. Bowel sounds active. Extremities reveal some swelling at the left knee. Neurologically awake, alert, oriented with well-coordinated movement. Patient oriented to place and person. Moves both upper extremities in a well-coordinated fashion. LABORATORY ASSESSMENT: None new. ASSESSMENT: 1. Essential hypertension, controlled. 2. Intermittent nausea, vomiting, with the use of narcotics. 3. Hyponatremia, almost resolved. 4. Restless legs syndrome. 5. Mild dementia. PLAN: The patient is stable. Continue present medical regimen. Patient's condition discussed with the patient. Prognosis is guarded potential transfer to nursing facility if the patient continues to have no nausea vomiting with meals today. MMODL / IJN: [id number] /
== END 2018-11-15 15:30 | DRG 470 ==
LOC: 2ORMAIN 05:40 → 4SSUR 09:11
PROVIDERS: ADMIT Orthopaedic Surgery; ATTEND Orthopaedic Surgery
PROC: 0SRD0J9 Replacement of Left Knee Joint with Synthetic Substitute, Cemented, Open Approach (ICD-10-PCS; principal; 2018-11-11 07:30)
DX: M17.12 Unilateral primary osteoarthritis, left knee (principal); D62 Acute posthemorrhagic anemia; E87.1 Hypo-osmolality and hyponatremia; G25.81 Restless legs syndrome; E78.5 Hyperlipidemia, unspecified; I10 Essential (primary) hypertension; M85.80 Other specified disorders of bone density and structure, unspecified site; F03.90 Unspecified dementia, unspecified severity, without behavioral disturbance, psychotic disturbance, mood disturbance, and anxiety; K52.89 Other specified noninfective gastroenteritis and colitis; E89.0 Postprocedural hypothyroidism; R11.2 Nausea with vomiting, unspecified; L71.9 Rosacea, unspecified; Z79.82 Long term (current) use of aspirin; Z79.890 Hormone replacement therapy; Z79.899 Other long term (current) drug therapy; Z90.710 Acquired absence of both cervix and uterus; Z90.49 Acquired absence of other specified parts of digestive tract; Z82.49 Family history of ischemic heart disease and other diseases of the circulatory system; Z80.42 Family history of malignant neoplasm of prostate; Z80.52 Family history of malignant neoplasm of bladder; Z88.5 Allergy status to narcotic agent; Z88.2 Allergy status to sulfonamides; Z88.8 Allergy status to other drugs, medicaments and biological substances
CPT/HCPCS: 80048; 80053; 85025; 88300